=== PATIENT | male | born 1975 | race Two or more races ===

== ENCOUNTER 2016-10-14 09:41 | Emergency (ER) | payer MEDICARE, OTHER ==
[~2016-10-14] VITALS: Ht 185.4 cm; Wt 101.2 kg
[~2016-10-14 09:41] MED LIST: CLINDAMYCIN HC150 MG ORAL; CLOTRIMAZOLE15 GM TOPIC; CYCLOBENZAPRINE10 MG ORAL; FLAGYL500 MG PO; IBUPROFEN600 MG ORAL; NKM; NORCO 5-325 TA1 EACH ORAL; SUPRAX400 MG PO; VIBRAMYCIN100 MG PO; VICODIN1 TA1 PO
[2016-10-14 09:46] VITALS: BP 116/74
[2016-10-14] MEDS ORDERED: AMOXICILLIN500 MG ORAL (10:09)
[2016-10-14 10:24] VITALS: BP 118/77
--- NOTE | 2016-10-14 13:13 | Emergency Room Report ---
History of Present Illness General Chief Complaint: Sore Throat Source: Patient Present Illness HPI 41-year-old male presents to ED complaining of sore throat x2 days. Notes cough and headache. Pain is 8/10, throbbing, nonradiating, worse with swallowing. Denies fevers or chills. Denies sick contacts or recent travel. No other aggravating or relieving factors. Denies any other associated symptoms Allergies: Coded Allergies: No Known Allergies (Unverified , 05/31/12) Patient History Past Medical History: none Past Surgical History: none Pertinent Family History: none Social History: Denies: alcohol use, drug use, smoking Immunizations: UTD Reviewed Nursing Documentation: PMH: Agreed, PSxH: Agreed Nursing Documentation-PMH Past Medical History: No Stated History Review of Systems All Other Systems: negative except mentioned in HPI Physical Exam Vital Signs Date Time Temp Pulse Resp B/P Pulse Ox O2 Delivery O2 Flow Rate FiO2 10/14/16 09:46 98.8 104 14 116/74 98 Room Air Sp02 EP Interpretation: reviewed, normal General Appearance: no apparent distress, alert, GCS 15, non-toxic Head: normocephalic Eyes: bilateral eye PERRL, bilateral eye normal inspection ENT: hearing grossly normal, no angioedema, normal voice, TMs + canals normal, pharyngeal erythema Neck: normal inspection Respiratory: normal inspection Cardiovascular #1: normal inspection Gastrointestinal: normal inspection Rectal: deferred Genitourinary: no CVA tenderness Musculoskeletal: normal inspection Neurologic: alert, oriented x3, responsive, motor strength/tone normal, sensory intact, speech normal Psychiatric: normal inspection Skin: normal inspection Lymphatic: normal inspection Medical Decision Making Diagnostic Impression: Primary Impression: Pharyngitis Qualified Codes: J02.9 - Acute pharyngitis, unspecified ER Course Hospital Course 41-year-old male presents to ED complaining of sore throat Differential diagnoses include: URI, pharyngitis, otitis media Clinical course Patient placed on stretcher. After initial history, physical exam reveals a young male in no acute distress. Bilateral TM unremarkable. There is pharyngeal erythema w/o tonsillar exudates. No lymphadenopathy. Clinical findings consistent with pharyngitis. Reassurance given Diagnosis - pharyngitis Stable and discharged home with prescriptions for amoxicillin. Instructed to followup with PMD. return to ED if symptoms recur or worsen Last Vital Signs Date Time Temp Pulse Resp B/P Pulse Ox O2 Delivery O2 Flow Rate FiO2 10/14/16 10:24 100 17 118/77 98 Room Air 10/14/16 09:46 98.8 Status: improved Disposition: HOME, SELF-CARE Condition: Stable Scripts Amoxicillin* (AMOXIL*) 500 Mg Capsule 500 MG ORAL THREE TIMES A DAY, #21 CAP Prov: JOSE D LOMELI M.D. 10/14/16 Referrals: [facility],REFERRING Patient Instructions: Pharyngitis, [id number] JOSE D LOMELI M.D. Oct 14, 2016 13:13
== END 2016-10-14 10:24 | disposition home or self-care (01) ==
LOC: EMR 10:20
DX: J02.9 Acute pharyngitis, unspecified (principal); R05 Cough; R51 Headache
CPT/HCPCS: 99283

== ENCOUNTER 2017-04-15 13:56 | Emergency (ER) | payer MEDICARE ==
[~2017-04-15] VITALS: Ht 182.9 cm; Wt 99.8 kg
[~2017-04-15 13:56] MED LIST changes: +AMOXICILLIN500 MG ORAL
[2017-04-15 14:00] VITALS: BP 129/85
[2017-04-15] MEDS ORDERED: NKM (14:03)
[2017-04-15] MEDS ORDERED: CEPHALEXIN500 MG ORAL (14:28)
[2017-04-15] MEDS ORDERED: BACTRIM DS TAB1 EAC1 ORAL (14:28)
[2017-04-15 14:44] VITALS: BP 136/87
--- NOTE | 2017-04-15 22:07 | Emergency Room Report ---
History of Present Illness General Chief Complaint: Skin Rash/Abscess Source: Patient Present Illness HPI The patient is a 42-year-old male presenting for possible skin infection. He states that he noticed a red robe on the back of the left neck 2 days prior after a haircut. He states that this area has now grown in size. Pain is an 8/ 10 dull ache it is worse with touch. He denies any radiating pain. He denies fever or chills. He denies any other symptoms Allergies: Coded Allergies: No Known Allergies (Unverified , 05/31/12) Patient History Past Medical History: see triage record Pertinent Family History: none Reviewed Nursing Documentation: PMH: Agreed, PSxH: Agreed Nursing Documentation-PMH Past Medical History: No Stated History Review of Systems All Other Systems: negative except mentioned in HPI Physical Exam Vital Signs Date Time Temp Pulse Resp B/P (MAP) Pulse Ox O2 Delivery O2 Flow Rate FiO2 04/15/17 14:00 98.2 75 14 129/85 99 Room Air Sp02 EP Interpretation: reviewed, normal General Appearance: no apparent distress, alert, GCS 15, non-toxic Head: normocephalic, atraumatic Eyes: bilateral eye normal inspection, bilateral eye PERRL ENT: hearing grossly normal, normal pharynx, no angioedema, normal voice Neck: full range of motion, no bony tend, supple/symm/no masses Musculoskeletal: back normal, gait/station normal, normal range of motion, non- tender Neurologic: alert, oriented x3, responsive, motor strength/tone normal, sensory intact, speech normal Psychiatric: judgement/insight normal, memory normal, mood/affect normal, no suicidal/homicidal ideation Skin: other - L posterior neck: 2cm in diamater erythematous indurated abscess. Tender. Medical Decision Making PA Attestation Dr. See is my supervising physician. Patient management was discussed with my supervising physician Diagnostic Impression: Primary Impression: Abscess ER Course The patient is a 42-year-old male presenting for possible skin infection Differential diagnoses considered but not limited to: abscess, cellulitis, insect bite, folliculitis PE: Afebrile. NAD L posterior neck has 2cm in diameter indurated abscess. TTP. No fluctuance The patient will be treated with Antibiotics and is given indication to return for incision and drainage. ER precautions given Last Vital Signs Date Time Temp Pulse Resp B/P (MAP) Pulse Ox O2 Delivery O2 Flow Rate FiO2 04/15/17 14:44 61 14 136/87 99 Room Air 04/15/17 14:00 98.2 Status: improved Disposition: HOME, SELF-CARE Condition: Improved Scripts Trimethoprim/Sulfamethoxazole 160/800* (BACTRIM DS TABLET*) 1 Each Tablet 1 TAB ORAL TWICE A DAY, #14 TAB Prov: KYLEE ASENCIO 04/15/17 Cephalexin* (KEFLEX*) 500 Mg Capsule 500 MG ORAL EVERY 12 HOURS, #14 CAP 0 Refills Prov: KYLEE ASENCIOA. 04/15/17 Referrals: NOT CHOSEN [facility],REFERRING Patient Instructions: Abscess Additional Instructions: I discussed my findings with the patient. All questions and concerns have been answered. Treatment and medication compliance have been addressed. I advised the patient that they need to follow up with PMD in 3-5 days. Return to ED if symptoms worsen, new symptoms arise, or if needed for any reason. Patient verbalized understanding of discharge instructions. KYLEE ASENCIO Apr 15, 2017 22:07
== END 2017-04-15 14:49 | disposition home or self-care (01) ==
LOC: EMR 14:26
DX: L02.11 Cutaneous abscess of neck (principal)
CPT/HCPCS: 99284

== ENCOUNTER 2017-04-18 16:12 | Emergency (ER) | payer MEDICARE ==
[~2017-04-18] VITALS: Ht 185.4 cm; Wt 98.9 kg
[~2017-04-18 16:12] MED LIST changes: +BACTRIM DS TAB1 EAC1 ORAL; +CEPHALEXIN500 MG ORAL
[2017-04-18 16:19] VITALS: BP 116/69
[2017-04-18] MEDS ORDERED: Cephalexin 500mg cap ORAL ONE (17:00)
[2017-04-18] MEDS ORDERED: Bactrim DS (160mg/800mg) tab ORAL ONE (17:00)
[2017-04-18 17:02] VITALS: BP 116/69
--- NOTE | 2017-04-18 19:07 | Emergency Room Report ---
History of Present Illness General Chief Complaint: Skin Rash/Abscess Source: Patient Present Illness HPI The patient is a 42-year-old male presenting for continued skin infection. She was seen in this emergency departments recently for infection and given prescription for Keflex and Bactrim which he did not fill at the pharmacy. He has presented today to see if we would be able to do incision and drainage. Pain is a 10 out of 10 sharp sensation with touch at the back of the neck where the infection has. Does not radiate. He denies any discharge from the area. He denies any fever or chills. Allergies: Coded Allergies: No Known Allergies (Unverified , 05/31/12) Patient History Past Medical History: see triage record Pertinent Family History: none Reviewed Nursing Documentation: PMH: Agreed, PSxH: Agreed Nursing Documentation-PMH Past Medical History: No Stated History Review of Systems All Other Systems: negative except mentioned in HPI Physical Exam Vital Signs Date Time Temp Pulse Resp B/P (MAP) Pulse Ox O2 Delivery O2 Flow Rate FiO2 04/18/17 16:15 98.2 75 20 116/69 96 Room Air Sp02 EP Interpretation: reviewed, normal General Appearance: no apparent distress, alert, GCS 15, non-toxic Head: normocephalic, atraumatic Eyes: bilateral eye normal inspection, bilateral eye PERRL ENT: hearing grossly normal, normal pharynx, no angioedema, normal voice Neck: full range of motion, no bony tend, supple/symm/no masses Respiratory: chest non-tender, lungs clear, normal breath sounds, speaking full sentences Musculoskeletal: back normal, gait/station normal, normal range of motion, non- tender Neurologic: alert, oriented x3, responsive, motor strength/tone normal, sensory intact, speech normal Psychiatric: judgement/insight normal, memory normal, mood/affect normal, no suicidal/homicidal ideation Skin: rash - There are 2 approximately 3 cm in diameter lesions on the left side of the neck. Erythematous but no surrounding erythema. Nonfluctuant. No central opening. Indurated Lymphatic: no adenopathy Medical Decision Making PA Attestation Dr. Monroy is my supervising physician. Patient management was discussed with my supervising physician Diagnostic Impression: Primary Impression: Abscess ER Course The patient is a 42-year-old male presenting for continued skin infection. Differential diagnoses considered but not limited to: abscess, cellulitis, insect bite, folliculitis PE: Afebrile. NAD That continues to be abscess on the left posterior neck. Tender to palpation. Erythematous. Not fluctuant. No surrounding erythema. No bleeding or drainage. No cervical lymphadenopathy The patient is given a dose of antibiotics here and was told he needs to fill his prescription from the last visit in order to appropriately treat this infection. He is given indications to return to the emergency department for incision and drainage Last Vital Signs Date Time Temp Pulse Resp B/P (MAP) Pulse Ox O2 Delivery O2 Flow Rate FiO2 04/18/17 17:02 98.2 69 20 116/69 96 Room Air Status: improved Disposition: HOME, SELF-CARE Condition: Improved Referrals: [facility],REFERRING (PCP) Patient Instructions: Abscess Additional Instructions: I discussed my findings with the patient. All questions and concerns have been answered. Treatment and medication compliance have been addressed. I advised the patient that they need to follow up with PMD in 3-5 days. Return to ED if symptoms worsen, new symptoms arise, or if needed for any reason. Patient verbalized understanding of discharge instructions. Please take the prescribed antibiotics from the last visit KYLEE ASENCIO Apr 18, 2017 19:07
== END 2017-04-18 17:03 | disposition home or self-care (01) ==
LOC: EMR 16:27
DX: L02.11 Cutaneous abscess of neck (principal)
CPT/HCPCS: 99283

== ENCOUNTER 2017-05-09 08:29 | Emergency (ER) | payer MEDICARE ==
[~2017-05-09] VITALS: Ht 185.4 cm; Wt 98.9 kg
[2017-05-09] MEDS ORDERED: CLINDAMYCIN HC300 MG ORAL (08:56)
[2017-05-09 09:04] VITALS: BP 113/70
--- NOTE | 2017-05-09 09:10 | Emergency Room Report ---
History of Present Illness General Chief Complaint: Wound Recheck/Suture Removal Source: Patient Present Illness HPI 42-year-old male history of multiple abscess he is presenting with redness and pain into his left nostril. Patient states that his pain has been worsening for 3 deformities. No purulent drainage. No fever or chills. Patient recently had an abscess left neck that was treated with antibiotics one month ago. Patient states that he has had multiple abscesses in the past. Has not seen her primary care doctor or engraver signature. Allergies: Coded Allergies: No Known Allergies (Unverified , 05/31/12) Patient History Past Medical History: see triage record Past Surgical History: none Pertinent Family History: none Reviewed Nursing Documentation: PMH: Agreed, PSxH: Agreed Nursing Documentation-PMH Past Medical History: No Stated History Review of Systems All Other Systems: negative except mentioned in HPI Physical Exam Vital Signs Date Time Temp Pulse Resp B/P (MAP) Pulse Ox O2 Delivery O2 Flow Rate FiO2 05/09/17 08:34 97.7 80 16 113/70 97 Room Air Sp02 EP Interpretation: reviewed, normal General Appearance: normal inspection, well appearing, no apparent distress, alert, GCS 15, non-toxic Head: normocephalic, atraumatic Eyes: bilateral eye normal inspection, bilateral eye PERRL, bilateral eye EOMI ENT: normal pharynx, normal voice, moist mucus membranes, other - Anterior nose with erythema, tender palpation, left nostril mild fluctuance palpated, very small, no purulent drainage, tender to palpation Neck: normal inspection, full range of motion, supple Respiratory: normal inspection, lungs clear, normal breath sounds, no respiratory distress, no retraction, no wheezing, speaking full sentences, chest symmetrical Cardiovascular #1: normal inspection, regular rate, rhythm, no edema, normal capillary refill Cardiovascular #2: 2+ radial (R), 2+ radial (L) Gastrointestinal: normal inspection, non tender, soft, non-distended, no guarding Genitourinary: no CVA tenderness Musculoskeletal: normal inspection, back normal, normal range of motion, non- tender Neurologic: normal inspection, alert, oriented x3, responsive, motor strength/ tone normal, sensory intact, normal gait, speech normal Psychiatric: normal inspection, judgement/insight normal, memory normal Skin: warm/dry, well hydrated, normal turgor, other - Small 1 x 1 cm nonfluctuant area of redness left posterior neck, nontender Medical Decision Making Diagnostic Impression: Primary Impression: Cellulitis Additional Impression: Abscess ER Course 42-year-old male with left nose redness and pain DDX: cellulitis /abscess No crepitus / pain out of proportion / rapid spreading for concern for nec fasc Plan: None emergency room Not adequate for incision and drainage ER course: remains nontoxic appearing. Disposition: Patient is to be discharged to home on PO antibiotics. . Strict precautions discussed with patients on when to return to the ED including fevers, chills, rapid spread of rash, persistent rash, extreme pain to extremity, which may indicate severe illness. Patient verbalizes understanding. Patient is instructed to follow up with primary care doctor in one week for wound check. Patient agrees with plan. Please note that this Emergency Department Report was dictated using [employer] machine operator technology software, occasionally this can lead to erroneous entry secondary to interpretation by the dictation equipment. Last Vital Signs Date Time Temp Pulse Resp B/P (MAP) Pulse Ox O2 Delivery O2 Flow Rate FiO2 05/09/17 09:04 97.7 16 113/70 97 Room Air 05/09/17 09:04 80 Disposition: HOME, SELF-CARE Condition: Stable Scripts Clindamycin Hcl (CLINDAMYCIN HCL) 300 Mg Capsule 300 MG ORAL THREE TIMES A DAY for 7 Days, #21 CAP 0 Refills Prov: Hoa Morejon M.D. 05/09/17 Referrals: [facility],REFERRING (PCP) Patient Instructions: Cellulitis Hoa Morejon M.D. May 09, 2017 09:10
== END 2017-05-09 09:05 | disposition home or self-care (01) ==
LOC: EMR 08:52
DX: L03.221 Cellulitis of neck (principal); L02.11 Cutaneous abscess of neck
CPT/HCPCS: 99283

== ENCOUNTER 2018-02-08 06:08 | Emergency (ER) | payer MEDICARE ==
[~2018-02-08] VITALS: Ht 185.4 cm; Wt 96.6 kg
[~2018-02-08 06:08] MED LIST changes: +CLINDAMYCIN HC300 MG ORAL
[2018-02-08 06:33] VITALS: BP 133/83
[2018-02-08] MEDS ORDERED: Lidocaine 1% 10mg/ml/Epi 0.005mg/ml 30ml vial INJ ONE ×2 (06:39→06:45)
--- NOTE | 2018-02-08 06:41 | Emergency Room Report ---
History of Present Illness General Chief Complaint: Earache Source: Patient Present Illness HPI Patient is a 42-year-old male presented after increased left earache. Patient gradual onset of symptoms. Patient reported having increased wax buildup and decreased ability to hear. This had happened several days ago. Patient reportedly had been attempting to irrigate his ear with peroxide as well as having increased swelling to the back of his head. This had gradual onset. Patient reported having some purulent drainage. He's had prior history of abscesses. Allergies: Coded Allergies: No Known Allergies (Unverified , 05/31/12) Patient History Reviewed Nursing Documentation: PMH: Agreed; PSxH: Agreed Review of Systems All Other Systems: negative except mentioned in HPI Physical Exam Vital Signs Date Time Temp Pulse Resp B/P (MAP) Pulse Ox O2 Delivery O2 Flow Rate FiO2 02/08/18 06:21 98.5 80 16 133/83 98 Room Air 98.4 General Appearance: well appearing, no apparent distress, alert, GCS 15 Head: normocephalic, atraumatic ENT: normal voice, other - bilateral cerumen impaction, left greater than right Neck: full range of motion, supple Respiratory: no respiratory distress, speaking full sentences Cardiovascular #1: normal inspection Musculoskeletal: normal inspection, no calf tenderness Neurologic: normal inspection, alert, oriented x3, responsive, normal gait Psychiatric: mood/affect normal Skin: no rash Procedures Incision and Drainage Incision and Drainage : Consent: Written Site: scalp Blade Size: 11 I & D Procedure: betadine prep, sterile drapes applied Wound Location: head Wound's Depth, Shape: superficial Wound Length (cm): 0 Wound Explored: clean Anesthesia: Lidocaine w/ Epi Volume Anesthetic (ccs): 1 Patient Tolerated: Well Complications: None Medical Decision Making Diagnostic Impression: Primary Impression: Impacted cerumen of both ears Additional Impression: Infected cyst of skin ER Course Patient presented for ear pain. Differential diagnosis included was not limited to otitis media, malignant otitis externa, foreign body, cellulitis, mastoiditis, carotid dissection, myocardial infarction among others. The patient presented have cerumen impaction. Ears are irrigated by tech. The patient presenting improvement after irrigation. The patient's cyst was incised after anesthesia with 1% lidocaine with epi without any purulent drainage. The patient was given protrusion for antibiotics. Is advised to follow-up for recheck in two days.Patient is given prescription for Keflex for infected skin lesion. Last Vital Signs Date Time Temp Pulse Resp B/P (MAP) Pulse Ox O2 Delivery O2 Flow Rate FiO2 02/08/18 06:33 98.4 80 16 133/83 98 Room Air 98.4 Status: improved Disposition: HOME, SELF-CARE Condition: Stable Scripts Ibuprofen* (MOTRIN*) 600 Mg Tablet 600 MG ORAL Q8H PRN for For Pain, #30 TAB 0 Refills Prov: Emiliano Bai MD 02/08/18 Cephalexin* (KEFLEX*) 500 Mg Capsule 500 MG ORAL EVERY 6 HOURS, #28 CAP Prov: Emiliano Bai MD 02/08/18 Referrals: NOT CHOSEN [facility]/,REFERRING (PCP) Emiliano Bai MD Feb 08, 2018 06:41
[2018-02-08] MEDS ORDERED: Bacitracin Oint UD TOPIC ONE ×2 (07:00)
[2018-02-08] MEDS ORDERED: IBUPROFEN600 MG ORAL (07:03)
[2018-02-08] MEDS ORDERED: CEPHALEXIN500 MG ORAL (07:03)
[2018-02-08 07:14] VITALS: BP 133/83
== END 2018-02-08 07:22 | disposition home or self-care (01) ==
LOC: EMR 06:37
DX: L72.8 Other follicular cysts of the skin and subcutaneous tissue (principal); H61.23 Impacted cerumen, bilateral
CPT/HCPCS: 10060; 99283

== ENCOUNTER 2018-03-07 05:45 | Emergency (ER) | payer MEDICARE ==
[~2018-03-07] VITALS: Ht 182.9 cm; Wt 117.9 kg
[2018-03-07 05:58] VITALS: BP 127/67
--- NOTE | 2018-03-07 06:07 | Emergency Room Report ---
History of Present Illness General Chief Complaint: Skin Rash/Abscess Source: Patient Present Illness HPI Patient presents with painful neck bump. Has had this cut in past. Woke him up with pain. Unable to sleep due to pain. Pain 5/10, sharp and aching. There were 2 bumps. One was cut and the other was left. No fevers, chills. No NVD. Afraid of needles. Tetanus UTD. 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 Reviewed Nursing Documentation: PMH: Agreed; PSxH: Agreed Nursing Documentation-PMH Past Medical History: No Stated History Review of Systems Constitutional: Denies: chills, fever Gastrointestinal: Denies: nausea Skin: Reports: see HPI Psychiatric: Reports: anxiety Neurological: Denies: numbness Hematologic/Lymphatic: Denies: easy bleeding Physical Exam Vital Signs Date Time Temp Pulse Resp B/P (MAP) Pulse Ox O2 Delivery O2 Flow Rate FiO2 03/07/18 05:53 98.2 72 16 127/67 98 Room Air 98.2 Sp02 EP Interpretation: reviewed, normal General Appearance: normal inspection, well appearing, no apparent distress Head: normocephalic, atraumatic Eyes: bilateral eye normal inspection, bilateral eye PERRL ENT: hearing grossly normal, normal voice, moist mucus membranes Neck: full range of motion, supple, other - lesion L upper neck Respiratory: no respiratory distress, speaking full sentences Cardiovascular #1: regular rate, rhythm Cardiovascular #2: 2+ radial (R) Gastrointestinal: normal inspection Musculoskeletal: digits/nails normal, gait/station normal, normal range of motion Neurologic: alert, oriented x3, grossly normal Psychiatric: mood/affect normal, other - suspicious of questions and worried about procedure but wants it done Skin: other - sebacious cyst L sided - upper neck, some erythema Procedures Incision and Drainage Incision and Drainage : Consent: Verbal Site: L neck Blade Size: 11 I & D Procedure: betadine prep, sterile drapes applied, sterile dressing applied, gauze wick placed Wound Location: neck Wound's Depth, Shape: superficial, linear Wound Explored: contaminated - sebaceous material drained Anesthesia: Lidocaine w/ Epi Volume Anesthetic (ccs): 2 Patient Tolerated: Well Complications: None Progress Patient sensitive to lidocaine injection. C/O pain and attempting to stop I and D. Good anesthesia with no sensation with incision. Wanted to prevent gauze insertion but no pain when performed. Medical Decision Making Diagnostic Impression: Primary Impression: Infected cyst of skin ER Course Patient presents with a painful cyst on his neck. DDx: abscess, sebaceous cyst , cellulitis amongst others. He wants this "cut". Discussed that this might recur. Still wants I and D. I and D performed. Gauze wick inserted. Tolerated. Treatment plan explained. Told to return 2 days to have wick removed. Warned of possible recurrence. Patient stable for outpatient observation and treatment. Last Vital Signs Date Time Temp Pulse Resp B/P (MAP) Pulse Ox O2 Delivery O2 Flow Rate FiO2 03/07/18 07:57 98.3 70 18 135/78 99 Room Air 98.2 Status: improved Disposition: HOME, SELF-CARE Condition: Improved Scripts Bacitracin (Bacitracin) 28.4 Gm Oint...g. 1 APPLIC TOPIC BID, #10 GM Prov: Roscoe Monroy M.D. 03/07/18 Ibuprofen* (MOTRIN*) 600 Mg Tablet 600 MG ORAL Q6H PRN for For Pain, #20 TAB Prov: Roscoe Monroy M.D. 03/07/18 Tramadol Hcl* (ULTRAM*) 50 Mg Tablet 50 MG ORAL Q6H PRN for For Pain, #8 TAB 0 Refills Prov: Roscoe Monroy M.D. 03/07/18 Trimethoprim/Sulfamethoxazole 160/800* (BACTRIM DS TABLET*) 1 Each Tablet 1 TAB ORAL Q12H, #14 TAB 0 Refills Prov: Roscoe Monroy M.D. 03/07/18 Roscoe Monroy M.D. Mar 07, 2018 06:07
[2018-03-07] MEDS ORDERED: Lidocaine 1% 10mg/ml/Epi 0.005mg/ml 30ml vial INJ ONE (06:15)
[2018-03-07] MEDS ORDERED: TRAMADOL HCL50 MG ORAL (06:52)
[2018-03-07] MEDS ORDERED: BACTRIM DS TAB1 EAC1 ORAL (06:52)
[2018-03-07] MEDS ORDERED: IBUPROFEN600 MG ORAL (06:52)
[2018-03-07] MEDS ORDERED: BACITRACIN15 GM TOPIC (06:54)
[2018-03-07] MEDS ORDERED: Bactrim-DS 1 tab ORAL ONE (07:00)
[2018-03-07 07:57] VITALS: BP 135/78
== END 2018-03-07 07:58 | disposition home or self-care (01) ==
LOC: EMR 06:18
DX: L72.3 Sebaceous cyst (principal)
CPT/HCPCS: 10060; 99283

== ENCOUNTER 2018-03-09 05:44 | Emergency (ER) | payer MEDICARE ==
[~2018-03-09] VITALS: Ht 182.9 cm; Wt 97.5 kg
[~2018-03-09 05:44] MED LIST changes: +BACITRACIN15 GM TOPIC; +TRAMADOL HCL50 MG ORAL
[2018-03-09 06:05] VITALS: BP 110/75
[2018-03-09 06:17] VITALS: BP 110/78
--- NOTE | 2018-03-11 14:34 | Emergency Room Report ---
History of Present Illness General Chief Complaint: Wound Recheck/Suture Removal Present Illness HPI 42-year-old male presents ED for wound check. Patient is status post IND of abscess to the back of his neck. Patient is here for packing removal and evaluation. States he is compliant with his antibiotics. States the pain is overall improved. Dull, 4 out of 10, nonradiating. Denies fevers or chills. Denies discharge. No other aggravating relieving factors. Denies any other associated symptoms Allergies: Coded Allergies: No Known Allergies (Unverified , 05/31/12) Patient History Past Medical History: none Past Surgical History: none Pertinent Family History: none Social History: Denies: smoking, alcohol use, drug use Immunizations: UTD Reviewed Nursing Documentation: PMH: Agreed; PSxH: Agreed Review of Systems All Other Systems: negative except mentioned in HPI Physical Exam Vital Signs Date Time Temp Pulse Resp B/P (MAP) Pulse Ox O2 Delivery O2 Flow Rate FiO2 03/09/18 05:55 98.1 67 16 110/75 97 Room Air 98.1 Sp02 EP Interpretation: reviewed, normal General Appearance: no apparent distress, alert, GCS 15, non-toxic Head: normocephalic Eyes: bilateral eye normal inspection, bilateral eye PERRL ENT: hearing grossly normal, normal pharynx, no angioedema, normal voice Neck: full range of motion, supple/symm/no masses, other - wound to L posterior neck. packing out. minimal induration/erythema. no discharge Respiratory: normal inspection Cardiovascular #1: normal inspection Gastrointestinal: normal inspection Rectal: deferred Genitourinary: no CVA tenderness Musculoskeletal: normal inspection Neurologic: alert, oriented x3, responsive, motor strength/tone normal, sensory intact, speech normal Psychiatric: judgement/insight normal, memory normal, mood/affect normal, no suicidal/homicidal ideation Skin: normal inspection Lymphatic: normal inspection Medical Decision Making Diagnostic Impression: Primary Impression: Encounter for wound re-check ER Course Hospital Course 42-year-old M presents to ED for wound check. s/p I&D neck abscess Clinical course Patient placed on stretcher. Packing already gone. Wound appears clean dry and intact with induration and erythema improved compared to prior visit. No additional intervention at this time discussed findings with patient. continue abx as directed. close followup with PMD Diagnosis - encounter for wound re-check, abscess Stable and discharged to home. continue abx as directed. Followup with PMD. Return to ED if any signs of infection develop Last Vital Signs Date Time Temp Pulse Resp B/P (MAP) Pulse Ox O2 Delivery O2 Flow Rate FiO2 03/09/18 06:17 98.0 16 110/78 99 Room Air 03/09/18 06:05 67 Status: improved Disposition: HOME, SELF-CARE Condition: Stable Referrals: [facility],REFERRING Patient Instructions: Wound Check Additional Instructions: complete antibiotics as directed. f/u with PMD Noah See MD Mar 11, 2018 14:33
== END 2018-03-09 06:17 | disposition home or self-care (01) ==
LOC: EMR 06:10
DX: Z48.817 Encounter for surgical aftercare following surgery on the skin and subcutaneous tissue (principal); L02.11 Cutaneous abscess of neck
CPT/HCPCS: 99282

== ENCOUNTER 2018-11-05 16:57 | Emergency (ER) | payer MEDICARE ==
[~2018-11-05] VITALS: Ht 185.4 cm; Wt 93.0 kg
[2018-11-05 17:00] VITALS: BP 132/88
[2018-11-05] MEDS ORDERED: Lidocaine 1% 10mg/ml/EPI 0.01mg/ml 20ml INJ ONE (17:15)
--- NOTE | 2018-11-05 17:15 | Emergency Room Report ---
History of Present Illness General Chief Complaint: Skin Rash/Abscess Source: Patient Present Illness HPI Patient is a 43-year-old male presented after increased skin rash for the past few days. He reports having increased pain to the area. He had similar symptoms in the past. Patient had not been taking any antibiotics. He had an attempted incision and drainage in the past without any improvement. Patient denies any fever. He reports similar symptoms in the past several times. Patient requested incision and drainage Allergies: Coded Allergies: No Known Allergies (Unverified , 11/05/18) Patient History Past Medical History: see triage record Reviewed Nursing Documentation: PMH: Agreed; PSxH: Agreed Review of Systems All Other Systems: negative except mentioned in HPI Physical Exam Vital Signs Date Time Temp Pulse Resp B/P (MAP) Pulse Ox O2 Delivery O2 Flow Rate FiO2 11/05/18 17:00 98.6 95 16 132/88 96 Room Air General Appearance: well appearing, no apparent distress, alert, GCS 15, non- toxic Head: normocephalic, atraumatic ENT: hearing grossly normal, normal voice Neck: full range of motion, supple Respiratory: no respiratory distress, speaking full sentences Musculoskeletal: no calf tenderness Neurologic: normal gait Psychiatric: mood/affect normal Skin: other - small abscess to occiput Procedures Incision and Drainage Incision and Drainage : Consent: Verbal Site: neck Blade Size: 15 I & D Procedure: betadine prep Wound Location: neck Wound's Depth, Shape: superficial Wound Length (cm): 1 Wound Explored: clean Irrigated w/ Saline (ccs): 5 Anesthesia: Lidocaine w/ Epi Volume Anesthetic (ccs): 1 Patient Tolerated: Well Complications: None Medical Decision Making Diagnostic Impression: Primary Impression: Abscess of skin ER Course Patient presented for skin rash. Differential diagnosis included was not limited to enlarged lymph node, abscess, cellulitis, folliculitis, infected pilonidal cyst among others. Patient has a benign exam and does not appear to require any further imaging or laboratory testing at this time. Patient was given pain medications. His abscess was incised and drained with 15 blade after sterile prep and drape. Small amount of purulent material was expressed. Patient tolerated this well. Patient was discharged home. Patient was advised to follow-up for recheck with his primary care physician. Last Vital Signs Date Time Temp Pulse Resp B/P (MAP) Pulse Ox O2 Delivery O2 Flow Rate FiO2 11/05/18 17:00 98.6 95 16 132/88 96 Room Air Status: improved Disposition: HOME, SELF-CARE Condition: Stable Scripts Trimethoprim/Sulfamethoxazole 160/800* (BACTRIM DS TABLET*) 1 Each Tablet 1 TAB ORAL Q12H, #14 TAB 0 Refills Prov: Emiliano Bai MD 11/05/18 Hydrocodone Bit/Acetaminophen 5-325* (NORCO 5-325*) 1 Each Tablet 1 TAB ORAL Q6H PRN for For Pain, #10 TAB 0 Refills Prov: Emiliano Bai MD 11/05/18 Emiliano Bai MD Nov 05, 2018 17:15
[2018-11-05] MEDS ORDERED: BACTRIM DS TAB1 EAC1 ORAL (18:04)
[2018-11-05] MEDS ORDERED: NORCO 5-325 TA1 EACH ORAL (18:04)
[2018-11-05 18:11] VITALS: BP 132/88
[2018-11-05] MEDS ORDERED: HYDROcodone/Acetamin 5/325 tab ORAL ONE (18:15)
== END 2018-11-05 18:10 | disposition home or self-care (01) ==
LOC: EMR 17:14
DX: L02.11 Cutaneous abscess of neck (principal)
CPT/HCPCS: 10060; 99283